=== PATIENT | male | born 1975 | race Caucasian/White ===

== ENCOUNTER 2017-07-02 18:27 | Emergency (ER) | payer MEDICAID ==
[~2017-07-02] VITALS: Ht 177.8 cm; Wt 81.0 kg
[~2017-07-02 18:27] MED LIST: ALBU18HF2 INH; AZIT250T PO; HYDR-3965 PO; NAPR-232 PO; NAPR-56 PO; NO HOME MEDS; TRAM50TA2 PO
[2017-07-02 18:42] VITALS: BP 126/75
== END 2017-07-02 20:50 | disposition left against medical advice (07) ==
LOC: ER 18:28
DX: M25.559 Pain in unspecified hip (principal); G89.29 Other chronic pain; J45.909 Unspecified asthma, uncomplicated; Z59.0 Homelessness
CPT/HCPCS: 99281

== ENCOUNTER 2017-07-04 23:57 | Emergency (ER) | payer MEDICAID ==
[~2017-07-04] VITALS: Ht 177.8 cm; Wt 81.8 kg
[2017-07-05] MEDS ORDERED: acetaminophen 325mg tablet PO ONE (00:45)
[2017-07-05] MEDS ORDERED: ACET-2119 PO (01:26)
[2017-07-05 01:38] VITALS: BP 124/66
== END 2017-07-05 01:40 | disposition home or self-care (01) ==
LOC: ER 23:57
DX: M25.551 Pain in right hip (principal); G89.29 Other chronic pain; J45.909 Unspecified asthma, uncomplicated; Z59.0 Homelessness
CPT/HCPCS: 73502; 99284

== ENCOUNTER 2017-07-10 19:21 | Emergency (ER) | payer MEDICAID ==
[~2017-07-10] VITALS: Ht 177.8 cm; Wt 81.8 kg
[~2017-07-10 19:21] MED LIST changes: +ACET-2119 PO
[2017-07-10] MEDS ORDERED: acetaminophen 325mg tablet PO ONE (20:40)
[2017-07-10 21:22] LABS: BASOPHILS % (AUTO) 0.3 % (0-1); EOSINOPHILS # (AUTO) 0.2 X10'3 (0-0.9); EOSINOPHILS % (AUTO) 2.7 % (0-6); HEMOGLOBIN 13.9 g/dl (14.0-17.9); LYMPHOCYTES # (AUTO) 2.3 X10'3 (1.1-4.8); LYMPHOCYTES % (AUTO) 25.5 % (21-51); MEAN CORPUSCULAR HGB CONC 34.7 % (33.0-36.5); MEAN CORPUSCULAR VOLUME 92.2 FL (78-98); MEAN PLATELET VOLUME 8.1 FL (7.4-10.4); MONOCYTES # (AUTO) 0.7 X10'3 (0-0.9); MONOCYTES % (AUTO) 8.3 % (2-12); NEUTROPHILS # (AUTO) 5.6 X10'3 (1.8-7.7); NEUTROPHILS % (AUTO) 63.2 % (42-75); PLATELET COUNT 301 X10'3 (140-440); RED BLOOD COUNT 4.34 X10'6 (4.70-6.10); RED CELL DISTRIBUTION WIDTH 13.1 % (11.5-14.5); WHITE BLOOD COUNT 8.9 X10'3 (4.5-11.0)
[2017-07-10] MEDS ORDERED: ibuprofen tablet 400 MG TABLET PO ONE (22:00)
[2017-07-10 22:49] VITALS: BP 116/54
== END 2017-07-10 22:55 | disposition home or self-care (01) ==
LOC: ER 19:22
DX: M25.551 Pain in right hip (principal); G89.29 Other chronic pain; J45.909 Unspecified asthma, uncomplicated; Z90.49 Acquired absence of other specified parts of digestive tract; Z79.899 Other long term (current) drug therapy; Z59.0 Homelessness
CPT/HCPCS: 36415; 73502; 85025; 85651; 86140; 99285

== ENCOUNTER 2017-07-16 20:47 | Emergency (ER) | payer MEDICAID ==
[~2017-07-16] VITALS: Ht 182.9 cm; Wt 70.0 kg
[2017-07-16] MEDS ORDERED: IBUP-1984 PO (22:15)
[2017-07-16] MEDS ORDERED: acetaminophen 325mg tablet PO ONE (22:15)
[2017-07-16] MEDS ORDERED: ACET-75 PO (22:15)
[2017-07-16] MEDS ORDERED: ketorolac trometh inj. 60 MG/2 ML VIAL IM ONE (22:15)
[2017-07-16 22:35] VITALS: BP 133/77
== END 2017-07-16 22:37 | disposition home or self-care (01) ==
LOC: ER 20:48
DX: M25.551 Pain in right hip (principal); J45.909 Unspecified asthma, uncomplicated; G89.29 Other chronic pain; Z90.49 Acquired absence of other specified parts of digestive tract; Z79.899 Other long term (current) drug therapy; Z59.0 Homelessness; W18.39XD Other fall on same level, subsequent encounter
CPT/HCPCS: 96372; 99283; J1885

== ENCOUNTER 2017-08-12 08:17 | Emergency (ER) | payer MEDICAID ==
[~2017-08-12] VITALS: Ht 177.8 cm; Wt 51.8 kg
[~2017-08-12 08:17] MED LIST changes: +ACET-75 PO; +IBUP-1984 PO
[2017-08-12 08:20] VITALS: BP 130/89
[2017-08-12] MEDS ORDERED: AMOX-101 PO (08:59)
[2017-08-12] MEDS ORDERED: acetaminophen 325mg tablet PO ONE (09:05)
== END 2017-08-12 09:13 | disposition home or self-care (01) ==
LOC: ER 08:17
DX: H61.22 Impacted cerumen, left ear (principal); H66.91 Otitis media, unspecified, right ear; J45.909 Unspecified asthma, uncomplicated; G89.29 Other chronic pain; Z59.0 Homelessness; Z98.890 Other specified postprocedural states; Z90.49 Acquired absence of other specified parts of digestive tract; Z79.899 Other long term (current) drug therapy
CPT/HCPCS: 99283